=== PATIENT | female | born 1930 | race Caucasian/White ===

== ENCOUNTER 2020-04-14 15:22 | Inpatient (IN) | payer OTHER ==
[2020-04-14] MEDS: SODIUM CHLORIDE 1,000 ML IV SCH (16:25)
[2020-04-14 16:47] LABS: ADD RBC MORPHOLOGY YES; BASO % 0.7 % (0-2.0); EOS % 2.5 % (0-4.5); HEMATOCRIT 27.5 % (32.4-45.2); HEMOGLOBIN 8.8 GM/dl (10.7-15.3); LYMPH % 15.9 % (8-40); MCH 22.9 pg (25.7-33.7); MCHC 31.8 g/dl (32.0-36.0); MEAN PLT VOLUME 9.3 fl (7.5-11.1); MONO % 6.3 % (3.8-10.2); NEUT % 74.6 % (42.8-82.8); PLATELET COUNT 193 K/MM3 (134-434); RBC 3.83 M/mm3 (3.60-5.2); WHITE BLOOD COUNT 5.2 K/mm3 (4.0-10.8)
[2020-04-14 16:53] LABS: ACTIVATED PTT 28.3 SECONDS (25.2-36.5)
[2020-04-14 16:55] LABS: ALBUMIN 4.1 g/dl (3.4-5.0); BILIRUBIN,TOTAL 1.3 mg/dl (0.2-1); CALCIUM 9.3 mg/dl (8.5-10); CREATININE 0.8 mg/dl (0.55-1.3); POTASSIUM 3.5 mmol/L (3.5-5.1)
[2020-04-14 17:00] LABS: INR 1.2 (0.82-1.09); PROTHROMBIN TIME (PATIENT) 13.4 SEC (10.2-13.0)
[2020-04-14] MEDS ORDERED: ASPIRIN 81 MG CHEWABLE TABLETS PO ONE (17:00)
[2020-04-14 17:02] LABS: CHOLESTEROL 122 mg/dl (50-200); HDL CHOLESTEROL 51 mg/dl (40-60); TRIGLYCERIDES 74 mg/dl (0-150)
[2020-04-14] MEDS ORDERED: ASPIRIN 81 MG CHEWABLE TABLETS ONE (17:04)
[2020-04-14] MEDS ORDERED: CLOPIDOGREL BISULFATE 75 MG TABLET (FP) PO ONE (17:07)
--- NOTE | 2020-04-14 17:14 | CON.NEURO ---
Consult Consult Specialty:: Jb Referred by:: ER Reason for Consultation:: Slurred speech - History of Present Illness History of Present Illness: 89 years old woman with PMH CAD OA HTN Cardiac Arrhythmia, not on Ac On Asprin Anemia HTN DM was last seen normal yesterday at 10 PM while at part Someone spoke to the patient today noted with exp aphasia No headache and no CP - History Source History Provided By: Medical Record Limitations to Obtaining History: Clinical Condition - Smoking History Smoking history: Never smoked Have you smoked in the past 12 months: No Home Medications - Allergies Allergies/Adverse Reactions: Allergies Allergy/AdvReac Type Severity Reaction Status Date / Time No Known Allergies Allergy Verified 04/14/20 15:23 - Home Medications Home Medications: Ambulatory Orders Aspirin [ASA -] 81 mg PO DAILY 04/14/20 Atorvastatin Ca [Lipitor] 20 mg PO HS 04/14/20 Doxazosin Mesylate 8 mg PO HS 04/14/20 Furosemide 40 mg PO DAILY 04/14/20 Glipizide [Glipizide ER] 10 mg PO DAILY 04/14/20 Lisinopril [Prinivil -] 40 mg PO DAILY 04/14/20 Metformin HCl [Glucophage] 1,000 mg PO BID 04/14/20 Metoprolol Succinate [Toprol Xl] 50 mg PO DAILY 04/14/20 Family Medical History Family History: Unable to Obtain, Unremarkable Review of Systems - Review of Systems Constitutional: reports: No Symptoms Eyes: reports: No Symptoms Neurological: reports: Dizziness, Headache, Incoordination Physical Exam-Neuro Vital Signs: Vital Signs Temperature 99.1 F 04/14/20 15:23 Pulse Rate 74 04/14/20 15:23 Respiratory Rate 20 04/14/20 15:23 Blood Pressure 170/88 04/14/20 15:23 O2 Sat by Pulse Oximetry (%) 97 04/14/20 15:23 Constitutional: Yes: Well Nourished Neck: Yes: WNL Cardiovascular: Yes: WNL Labs: CBC, BMP 04/14/20 16:27 04/14/20 16:27 INR, PTT INR 1.20 (0.82-1.09) 04/14/20 16:27 - Neuro Exam Level Of Consciousness: Yes: Oriented to Person, Oriented to Place Eyes: Yes: PERRLA Speech: Slurred Dominant Hand: Right Cranial Nerves II-XII Intact: Yes Gag: Present DTR's: 1+ Left Bicep, 1+ Right Bicep Response to light touch: Abnormal Response to pain prick: Abnormal Response to temperature: Abnormal Motor Strength: 3/5: Left Arm, Right Arm, Left Leg, Right Leg Gait: Deferred NIH Stroke Scale - Last Known Well Date/Time & Onset Date Last Known Well: 04/13/20 Time Last Known Well: 22:00 - Initial Evaluation Level of consciousness: Alert Ask patient the month and their age: Answers both correctly Ask patient to open & close eyes; make fist and let go: Obeys both correctly Best gaze (horizontal eye movement): Normal Visual field testing: No visual field loss Facial paresis (Show teeth/raise eyebrows/close eyes tight): Normal symmetrical movement Motor Function: Left Arm: Normal Motor Function: Right Arm: Normal (extends arm 90 (or 45) degrees for 10 seconds without drift Motor Function: Left Leg: Normal (extends leg 30 degrees for 5 seconds without drift) Motor Function: Right Leg: Normal (extends leg 30 degrees for 5 seconds without drift) Limb Ataxia: No ataxia Sensory(Use pinprick test arms,legs,trunk,face/side to side): Normal Best language (Describe picture, name items, read sentences): Mild to moderate aphasia Dysarthria (read several words): Mild to moderate slurring of words Extinction and Inattention: No abnormality - Total Score NIH Stroke Scale Score: 2 Imaging - Results Cat Scan: Image Reviewed Problem List - Problems (1) Stroke due to embolism of carotid artery Code(s): I63.139 - CEREBRAL INFARCTION DUE TO EMBOLISM OF UNSP CAROTID ARTERY Assessment/Plan 1. No Tpa 2. Anemia work up 3. Add Plavix 75 mg po qd 4. Speech eval 5. C Duplex 6. Echo 7. DVT prophylaxis 8. MRI brain no Kyle Thank you Jenn Muhammad MD [phone]
--- NOTE | 2020-04-14 17:20 | PDOC ---
Documentation entered by Erica Noriega SCRIBE, acting as scribe for Chin Newton MD. Chin Newton MD: This documentation has been prepared by the Leann escobedo Brenda, SCRIBE, under my direction and personally reviewed by me in its entirety. I confirm that the documentation accurately reflects all work, treatment, procedures, and medical decision making performed by me. History of Present Illness - General Chief Complaint: CVA/TIA Stated Complaint: TIA/STROKE History Source: Patient Exam Limitations: No Limitations - History of Present Illness Initial Comments: 04/14/20 15:44 The patient is a an 89 year old male, with a significant PMH of HTN, DM and ?Afib (needs valve procedure) who presents to the emergency department with who presents to the ED for evaluation of confusion. As per the patient's grand niece, around 1:50pm today she spoke to a family member who noted that the patient was unable to properly respond and use her words while on the phone. As per niece, the patient was at a social gathering last night, where she had extensive conversations with other people and was fine. The niece also notes that the patient is normally sharp and very conversive at her baseline, but has not been today. She also reports that she has been complateting all her tasks at home normally, such as cooking but has only not been able to respond properly. The niece also notes that the patient was seen at [facility] last week and had an IV contrast CT scan, so she had not taken her metformin. The patient was a poor historian. Allergies: Seasonal, NKDA Social history: No reported hx of tobacco use, alcohol use or illicit drug use. NIH Stroke Scale - Last Known Well Date/Time & Onset Date Last Known Well: 04/13/20 Time Last Known Well: 22:00 - Initial Evaluation Level of consciousness: Alert Ask patient the month and their age: Both incorrect Ask patient to open & close eyes; make fist and let go: Obeys both correctly Best gaze (horizontal eye movement): Normal Visual field testing: No visual field loss Facial paresis (Show teeth/raise eyebrows/close eyes tight): Normal symmetrical movement Motor Function: Left Arm: Normal Motor Function: Right Arm: Normal (extends arm 90 (or 45) degrees for 10 seconds without drift Motor Function: Left Leg: Normal (extends leg 30 degrees for 5 seconds without drift) Motor Function: Right Leg: Normal (extends leg 30 degrees for 5 seconds without drift) Limb Ataxia: No ataxia Sensory(Use pinprick test arms,legs,trunk,face/side to side): Normal Best language (Describe picture, name items, read sentences): Mild to moderate aphasia Dysarthria (read several words): Mild to moderate slurring of words Extinction and Inattention: No abnormality - Total Score NIH Stroke Scale Score: 4 Past History - Medical History Allergies/Adverse Reactions: Allergies Allergy/AdvReac Type Severity Reaction Status Date / Time No Known Allergies Allergy Verified 04/14/20 15:23 Home Medications: Ambulatory Orders Aspirin [ASA -] 81 mg PO DAILY 04/14/20 Atorvastatin Ca [Lipitor] 20 mg PO HS 04/14/20 Doxazosin Mesylate 8 mg PO HS 04/14/20 Furosemide 40 mg PO DAILY 04/14/20 Glipizide [Glipizide ER] 10 mg PO DAILY 04/14/20 Lisinopril [Prinivil -] 40 mg PO DAILY 04/14/20 Metformin HCl [Glucophage] 1,000 mg PO BID 04/14/20 Metoprolol Succinate [Toprol Xl] 50 mg PO DAILY 04/14/20 Review of Systems - Review of Systems Able to Perform ROS?: Yes Comments:: 04/14/20 15:44 ROS: A complete review of 10 out of 10 review of systems is taken and is negative apart from what is previously mentioned below and in the HPI. *Physical Exam - Physical Exam 04/14/20 15:45 Vitals: Triage vital signs reviewed General Appearance: No acute distress, well nourished, well developed Head: Atraumatic Eyes: Pupils equal reactive round, extraocular movement intact Neck: Supple; No nuchal rigidity Cardiac: Regular rate and rhythm, no murmurs, no rubs, no gallops Lungs: Clear to auscultation bilateral, good air movement bilaterally Abdomen: Soft, nondistended, normal bowel sounds, nontender to palpation Extremities: Full range of motion to all extremities, no cyanosis, clubbing, or edema Skin: Warm and dry, no rashes or lesions, no rash, no petechiae Neuro: AOX1; Cranial Nerves 2-12 grossly intact, Strength intact to all extremities, Sensation intact to all extremities, gait normal Psych: Normal mood, normal affect 04/14/20 18:19 Heart Score/ECG Review - ECG Impressions Comment:: 04/14/20 18:17 EKG performed at 1557 demonstrates normal sinus rhythm no ST elevations no T wave inversions Interpreted by me. ED Treatment Course - LABORATORY CBC & Chemistry Diagram: 04/14/20 16:27 04/14/20 16:27 Medical Decision Making - Medical Decision Making 04/14/20 16:07 Patient seen at time of arrival at 322pm. MD at bedside. Code carrera activated. Last seen normal last night. Not a TPA candidate. 04/14/20 17:01 Call placed out to Neurology (Dr. Santos) 04/14/20 17:20 Case discussed with neurology recommends full dose aspirin and Plavix 75 mg will see patient will admit for further evaluation of stroke Aspirin Plavix given will admit to medicine for further management. Discharge - Discharge Information Problems reviewed: Yes Clinical Impression/Diagnosis: Cerebrovascular accident (CVA) Qualifiers: CVA mechanism: unspecified Qualified Code(s): I63.9 - Cerebral infarction, unspecified Condition: Good - Admission Yes - Follow up/Referral - Patient Discharge Instructions - Post Discharge Activity
[2020-04-14] MEDS ORDERED: CLOPIDOGREL BISULFATE 75 MG TABLET (FP) ONE (17:44)
[2020-04-14 20:44] VITALS: BMI 34.9
--- NOTE | 2020-04-14 21:33 | HP ---
CHIEF COMPLAINT: Confusion, Expressive Aphasia PCP: HISTORY OF PRESENT ILLNESS: This is a 89 y/o female with a PMHx of HTN, NIDDM, CAD, ?Afib (needs valve procedure), OA, ROBINSON. Who presents to the ED for confusion. Per ED records, the grandniece reports a family member noted the patient to be not responding and having difficulty with her words while on the telephone. The grandniece reports that the patient was seen at a family function the day before fully conversant. The niece reports that the patient is unable to complete her daily tasks such as cooking, unable to respond properly. The patient had a CT scan with IV contrast last week at [facility]- Metformin was held. The patient is a poor historian ER course was notable for: (1) Head CT- no CT evidence of acute intracranial pathology (2) Hgb8.8, Hct 27.5 (3) EKG- Afib with PVCs Recent Travel: None PAST MEDICAL HISTORY: See HPI PAST SURGICAL HISTORY: Unknown Social History: Smoking: Never (per medical records) Alcohol: None Drugs: None Lives alone Allergies No Known Allergies Allergy (Verified 04/14/20 15:23) HOME MEDICATIONS: Home Medications Medication Instructions Recorded Aspirin [ASA -] 81 mg PO DAILY 04/14/20 Atorvastatin Ca [Lipitor] 20 mg PO HS 04/14/20 Doxazosin Mesylate 8 mg PO HS 04/14/20 Furosemide 40 mg PO DAILY 04/14/20 Glipizide [Glipizide ER] 10 mg PO DAILY 04/14/20 Lisinopril [Prinivil -] 40 mg PO DAILY 04/14/20 Metformin HCl [Glucophage] 1,000 mg PO BID 04/14/20 Metoprolol Succinate [Toprol Xl] 50 mg PO DAILY 04/14/20 REVIEW OF SYSTEMS CONSTITUTIONAL: Absent: fever, chills, diaphoresis, generalized weakness, malaise, loss of appetite, weight change HEENT: Absent: rhinorrhea, nasal congestion, throat pain, throat swelling, difficulty swallowing, mouth swelling, ear pain, eye pain, visual changes CARDIOVASCULAR: Absent: chest pain, syncope, palpitations, irregular heart rate, lightheadedn ess, peripheral edema RESPIRATORY: Absent: cough, shortness of breath, dyspnea with exertion, orthopnea, wheezing, stridor, hemoptysis GASTROINTESTINAL: Absent: abdominal pain, abdominal distension, nausea, vomiting, diarrhea, constipation, melena, hematochezia GENITOURINARY: Absent: dysuria, frequency, urgency, hesitancy, hematuria, flank pain, genital pain MUSCULOSKELETAL: Absent: myalgia, arthralgia, joint swelling, back pain, neck pain SKIN: Absent: rash, itching, pallor HEMATOLOGIC/IMMUNOLOGIC: Absent: easy bleeding, easy bruising, lymphadenopathy, frequent infections ENDOCRINE: Absent: unexplained weight gain, unexplained weight loss, heat intolerance, cold intolerance NEUROLOGIC: mental status changes Absent: headache, focal weakness or paresthesias, dizziness, unsteady gait, seizure, bladder or bowel incontinence PSYCHIATRIC: Absent: anxiety, depression, suicidal or homicidal ideation, hallucinations. PHYSICAL EXAMINATION Vital Signs - 24 hr 04/14/20 04/14/20 04/14/20 15:23 17:07 17:39 Temperature 99.1 F 99.1 F 99.1 F Pulse Rate 74 Pulse Rate [ 74 74 Right] Respiratory 20 20 20 Rate Blood Pressure 170/88 Blood Pressure 176/65 H 182/86 H [Right Arm] O2 Sat by Pulse 97 98 99 Oximetry (%) 04/14/20 20:26 Temperature 98.0 F Pulse Rate 76 Pulse Rate [ Right] Respiratory 16 Rate Blood Pressure 172/57 H Blood Pressure [Right Arm] O2 Sat by Pulse 97 Oximetry (%) GENERAL: Asleep but arousable, with some confusion, in no acute distress. HEAD: Normal with no signs of trauma. EYES: Pupils equal, round and reactive to light, extraocular movements intact, sclera anicteric, conjunctiva clear. No lid lag. EARS, NOSE, THROAT: Ears normal, nares patent, oropharynx clear without exudates. Dry mucous membranes, hearing aids. NECK: Normal range of motion, supple without lymphadenopathy, JVD, or masses. LUNGS: Breath sounds equal, clear to auscultation bilaterally. No wheezes, and no crackles. No accessory muscle use. HEART: Irregular rate and rhythm, normal S1 and S2 without murmur, rub or gallop. ABDOMEN: Soft, nontender, not distended, normoactive bowel sounds, no guarding, no rebound, no masses. No hepatomegaly or splenomegaly. MUSCULOSKELETAL: Normal range of motion at all joints. No bony deformities or tenderness. No CVA tenderness. UPPER EXTREMITIES: 2+ pulses, warm, well-perfused. No cyanosis. No clubbing. No peripheral edema. LOWER EXTREMITIES: 2+ pulses, warm, well-perfused. No calf tenderness. +2 b/l pitting peripheral edema. NEUROLOGICAL: Cranial nerves II-XII intact. Normal speech. Gait not observed. PSYCHIATRIC: Cooperative. Good eye contact. Appropriate mood and affect. SKIN: Warm, dry, normal turgor, no rashes or lesions noted, normal capillary refill. Laboratory Results - last 24 hr 04/14/20 04/14/20 04/14/20 16:00 16:07 16:27 WBC RBC Hgb Hct MCV MCH MCHC RDW Plt Count MPV Absolute Neuts (auto) Neutrophils % Lymphocytes % Monocytes % Eosinophils % Basophils % PT with INR 13.4 H INR 1.20 PTT (Actin FS) 28.3 Sodium Potassium Chloride Carbon Dioxide Anion Gap BUN Creatinine Est GFR (CKD-EPI)AfAm Est GFR (CKD-EPI)NonAf POC Glucometer 158 Random Glucose Calcium Total Bilirubin AST ALT Alkaline Phosphatase Creatine Kinase Troponin I Total Protein Albumin Triglycerides Cholesterol HDL Cholesterol Urine Color Yellow Urine Appearance Clear Urine pH 6.0 Urine Protein Negative Urine Glucose (UA) Negative Urine Ketones Negative Urine Blood Negative Urine Nitrite Negative Urine Bilirubin Negative Urine Urobilinogen 0.2 Ur Leukocyte Esterase Negative Blood Type Antibody Screen 04/14/20 04/14/20 04/14/20 16:27 16:27 16:27 WBC 5.2 RBC 3.83 Hgb 8.8 L Hct 27.5 L MCV 72.0 L MCH 22.9 L MCHC 31.8 L RDW 18.0 H Plt Count 193 MPV 9.3 Absolute Neuts (auto) 4.0 Neutrophils % 74.6 Lymphocytes % 15.9 Monocytes % 6.3 Eosinophils % 2.5 Basophils % 0.7 PT with INR INR PTT (Actin FS) Sodium 135 L Potassium 3.5 Chloride 93 L Carbon Dioxide 26 Anion Gap 16 BUN 27.0 H Creatinine 0.8 Est GFR (CKD-EPI)AfAm 75.76 Est GFR (CKD-EPI)NonAf 65.36 POC Glucometer Random Glucose 154 H Calcium 9.3 Total Bilirubin 1.3 H AST 24 ALT 19 Alkaline Phosphatase 84 Creatine Kinase Troponin I Total Protein 7.0 Albumin 4.1 Triglycerides 74 Cholesterol 122 HDL Cholesterol 51 Urine Color Urine Appearance Urine pH Urine Protein Urine Glucose (UA) Urine Ketones Urine Blood Urine Nitrite Urine Bilirubin Urine Urobilinogen Ur Leukocyte Esterase Blood Type Antibody Screen 04/14/20 04/14/20 04/14/20 16:27 16:27 16:27 WBC RBC Hgb Hct MCV MCH MCHC RDW Plt Count MPV Absolute Neuts (auto) Neutrophils % Lymphocytes % Monocytes % Eosinophils % Basophils % PT with INR INR PTT (Actin FS) Sodium Potassium Chloride Carbon Dioxide Anion Gap BUN Creatinine Est GFR (CKD-EPI)AfAm Est GFR (CKD-EPI)NonAf POC Glucometer Random Glucose Calcium Total Bilirubin AST ALT Alkaline Phosphatase Creatine Kinase 73 Troponin I < 0.03 Total Protein Albumin Triglycerides Cholesterol HDL Cholesterol Urine Color Urine Appearance Urine pH Urine Protein Urine Glucose (UA) Urine Ketones Urine Blood Urine Nitrite Urine Bilirubin Urine Urobilinogen Ur Leukocyte Esterase Blood Type A POSITIVE Antibody Screen Negative ASSESSMENT/PLAN: This is a 89 y/o female with a PMHx of CAD, Afib (need valve procedure), NIDDM, OA, ROBINSON. Admitted for Acute CVA, Anemia for further evaluation of their emergent condition. Plan: See Problem List FEN D50.45%NS@42ml/hr Replete lytes prn NPO DVT ppx OOB SCDs Hold AC for now- awaiting Brain MRI Dispo: Requires Inpatient Care Family Medical History Family History: Unable to Obtain Problem List - Problem (1) Cerebrovascular accident (CVA) Assessment/Plan: NIHSS 2 Continue cardiac monitoring Head CT- neg ICH Neurology following Plavix and Asa given in ED Brain MRI Carotid Doppler r/o stenosis Echo Neurochecks Swallow eval HgbA1c Monitor CBC, CMP Continue Plavix Fall Precautions Code(s): I63.9 - CEREBRAL INFARCTION, UNSPECIFIED Qualifiers: CVA mechanism: unspecified Qualified Code(s): I63.9 - Cerebral infarction, unspecified (2) Anemia Assessment/Plan: Likely secondary to HERN[place]N Will transfuse if Hgb < 7.0 Anemia work up initiated Stool Occult Monitor CBC Monitor Vitals Code(s): D64.9 - ANEMIA, UNSPECIFIED (3) CAD (coronary artery disease) Assessment/Plan: EKG reviewed Continue home meds Code(s): I25.10 - ATHSCL HEART DISEASE OF [place] CORONARY ARTERY W/O ANG PCTRS (4) A-fib Assessment/Plan: EKG- Afib rate controlled [id number] 5 Continue home meds with parameters Monitor CMP Monitor vitals Code(s): I48.91 - UNSPECIFIED ATRIAL FIBRILLATION (5) HTN (hypertension) Assessment/Plan: suboptimal Monitor BP Continue home med Monitor renal function Code(s): I10 - ESSENTIAL (PRIMARY) HYPERTENSION (6) Diabetes mellitus Assessment/Plan: stable BGMs ISS Hold home meds for now Code(s): E11.9 - TYPE 2 DIABETES MELLITUS WITHOUT COMPLICATIONS (7) Encounter for screening laboratory testing for COVID-19 virus Assessment/Plan: [employer]ING [employer] 1, low risk COVID-19 PCR-pending Isolation Precautions Code(s): Z11.59 - ENCOUNTER FOR SCREENING FOR OTHER VIRAL DISEASES Visit type - Emergency Visit Emergency Visit: Yes ED Registration Date: 04/14/20 Care time: The patient presented to the Emergency Department on the above date and was hospitalized for further evaluation of their emergent condition. - New Patient This patient is new to me today: Yes Date on this admission: 04/14/20 - Critical Care Critical Care patient: No
[2020-04-14] MEDS ORDERED: ATORVASTATIN CA 80 MG TABLET (FP) PO SCH (22:00)
[2020-04-14 23:06] LABS: LDL CHOLESTEROL (ONLY SJRH) 56 mg/dL (5-100)
[2020-04-14 23:33] LABS: ANISOCYTOSIS 1+
[2020-04-14 23:34] LABS: PLATELET ESTIMATE ADEQUATE
[2020-04-14] MEDS: INSULIN SLIDING SCALE (NOVOLOG) 1 VIAL SQ SCH (23:54)
[2020-04-15] MEDS: INSULIN SLIDING SCALE (NOVOLOG) 1 VIAL SQ SCH ×4 (06:28→23:52)
[2020-04-15 08:01] LABS: BASO % 0.9 % (0-2.0); EOS % 3.9 % (0-4.5); HEMATOCRIT 27.6 % (32.4-45.2); HEMOGLOBIN 8.6 GM/dl (10.7-15.3); LYMPH % 20.3 % (8-40); MCH 22.8 pg (25.7-33.7); MCHC 31.3 g/dl (32.0-36.0); MEAN PLT VOLUME 9.1 fl (7.5-11.1); MONO % 7.4 % (3.8-10.2); NEUT % 67.5 % (42.8-82.8); PLATELET COUNT 198 K/MM3 (134-434); RBC 3.79 M/mm3 (3.60-5.2); RDW 18.1 % (11.6-15.6); WHITE BLOOD COUNT 4.4 K/mm3 (4.0-10.8)
[2020-04-15 08:07] LABS: ALBUMIN 3.6 g/dl (3.4-5.0); BILIRUBIN,TOTAL 1.4 mg/dl (0.2-1); CALCIUM 9.2 mg/dl (8.5-10); CREATININE 0.9 mg/dl (0.55-1.3); MAGNESIUM 1.6 mg/dL (1.8-2.4); PHOSPHOROUS 4.3 mg/dl (2.5-4.9); POTASSIUM 3.5 mmol/L (3.5-5.1); TOT PROT 6.2 g/dl (6.4-8.2)
[2020-04-15] MEDS ORDERED: MAGNESIUM SULF 50% (8.12 MEQ/2 ML-1 GM VIAL) IVPB ONE (08:58)
[2020-04-15] MEDS ORDERED: MAGNESIUM SULFATE IN WATER 2 GM/50 ML IVPB IVPB ONE (09:00)
[2020-04-15] MEDS ORDERED: ASPIRIN 81 MG CHEWABLE TABLETS PO SCH (10:00)
[2020-04-15] MEDS ORDERED: CLOPIDOGREL BISULFATE 75 MG TABLET (FP) PO SCH (10:00)
[2020-04-15] MEDS: LISINOPRIL 20 MG TABLET (FP) PO SCH (10:00)
--- NOTE | 2020-04-15 10:19 | PN ---
Physical Exam: SUBJECTIVE: Patient seen and examined oob to chair. Feels her speech is back to baseline. OBJECTIVE: Vital Signs Period Temp Pulse Resp BP Sys/Pate Pulse Ox Last 24 Hr 98.0 F-99.1 F 74-88 16-20 153-182/57-88 97-99 GENERAL: The patient is awake, alert, and fully oriented, in no acute distress. HEAD: Normal with no signs of trauma. EYES: PERRL, extraocular movements intact, sclera anicteric, conjunctiva clear. No ptosis. LUNGS: Breath sounds equal, clear to auscultation bilaterally, no wheezes, no crackles, no accessory muscle use. HEART: Irregular ABDOMEN: Soft, nontender, nondistended EXTREMITIES: 2+ pulses, warm, well-perfused, no edema. NEUROLOGICAL: Cranial nerves II through XII grossly intact. Normal speech, gait not observed. PSYCH: Normal mood, normal affect. SKIN: Warm, dry, normal turgor Laboratory Results - last 24 hr 04/14/20 04/14/20 04/14/20 16:00 16:07 16:27 WBC RBC Hgb Hct MCV MCH MCHC RDW Plt Count MPV Absolute Neuts (auto) Neutrophils % Lymphocytes % Monocytes % Eosinophils % Basophils % Hypochromia Platelet Estimate Anisocytosis Microcytosis PT with INR 13.4 H INR 1.20 PTT (Actin FS) 28.3 Sodium Potassium Chloride Carbon Dioxide Anion Gap BUN Creatinine Est GFR (CKD-EPI)AfAm Est GFR (CKD-EPI)NonAf POC Glucometer 158 Random Glucose Calcium Phosphorus Magnesium Ferritin Total Bilirubin AST ALT Alkaline Phosphatase Creatine Kinase Troponin I Total Protein Albumin Triglycerides Cholesterol Total LDL Cholesterol HDL Cholesterol Urine Color Yellow Urine Appearance Clear Urine pH 6.0 Urine Protein Negative Urine Glucose (UA) Negative Urine Ketones Negative Urine Blood Negative Urine Nitrite Negative Urine Bilirubin Negative Urine Urobilinogen 0.2 Ur Leukocyte Esterase Negative Blood Type Antibody Screen 04/14/20 04/14/20 04/14/20 16:27 16:27 16:27 WBC 5.2 RBC 3.83 Hgb 8.8 L Hct 27.5 L MCV 72.0 L MCH 22.9 L MCHC 31.8 L RDW 18.0 H Plt Count 193 MPV 9.3 Absolute Neuts (auto) 4.0 Neutrophils % 74.6 Lymphocytes % 15.9 Monocytes % 6.3 Eosinophils % 2.5 Basophils % 0.7 Hypochromia 2+ Platelet Estimate Adequate Anisocytosis 1+ Microcytosis 1+ PT with INR INR PTT (Actin FS) Sodium 135 L Potassium 3.5 Chloride 93 L Carbon Dioxide 26 Anion Gap 16 BUN 27.0 H Creatinine 0.8 Est GFR (CKD-EPI)AfAm 75.76 Est GFR (CKD-EPI)NonAf 65.36 POC Glucometer Random Glucose 154 H Calcium 9.3 Phosphorus Magnesium Ferritin Total Bilirubin 1.3 H AST 24 ALT 19 Alkaline Phosphatase 84 Creatine Kinase Troponin I Total Protein 7.0 Albumin 4.1 Triglycerides 74 Cholesterol 122 Total LDL Cholesterol 56 HDL Cholesterol 51 Urine Color Urine Appearance Urine pH Urine Protein Urine Glucose (UA) Urine Ketones Urine Blood Urine Nitrite Urine Bilirubin Urine Urobilinogen Ur Leukocyte Esterase Blood Type Antibody Screen 04/14/20 04/14/20 04/14/20 16:27 16:27 16:27 WBC RBC Hgb Hct MCV MCH MCHC RDW Plt Count MPV Absolute Neuts (auto) Neutrophils % Lymphocytes % Monocytes % Eosinophils % Basophils % Hypochromia Platelet Estimate Anisocytosis Microcytosis PT with INR INR PTT (Actin FS) Sodium Potassium Chloride Carbon Dioxide Anion Gap BUN Creatinine Est GFR (CKD-EPI)AfAm Est GFR (CKD-EPI)NonAf POC Glucometer Random Glucose Calcium Phosphorus Magnesium Ferritin Total Bilirubin AST ALT Alkaline Phosphatase Creatine Kinase 73 Troponin I < 0.03 Total Protein Albumin Triglycerides Cholesterol Total LDL Cholesterol HDL Cholesterol Urine Color Urine Appearance Urine pH Urine Protein Urine Glucose (UA) Urine Ketones Urine Blood Urine Nitrite Urine Bilirubin Urine Urobilinogen Ur Leukocyte Esterase Blood Type A POSITIVE Antibody Screen Negative 04/14/20 04/14/20 04/14/20 22:30 22:30 22:30 WBC RBC Hgb Hct MCV MCH MCHC RDW Plt Count MPV Absolute Neuts (auto) Neutrophils % Lymphocytes % Monocytes % Eosinophils % Basophils % Hypochromia Platelet Estimate Anisocytosis Microcytosis PT with INR INR PTT (Actin FS) Sodium Potassium Chloride Carbon Dioxide Anion Gap BUN Creatinine Est GFR (CKD-EPI)AfAm Est GFR (CKD-EPI)NonAf POC Glucometer Random Glucose Calcium Phosphorus Magnesium Ferritin 59.5 Total Bilirubin AST ALT Alkaline Phosphatase Creatine Kinase 56 Troponin I < 0.03 Total Protein Albumin Triglycerides Cholesterol Total LDL Cholesterol HDL Cholesterol Urine Color Urine Appearance Urine pH Urine Protein Urine Glucose (UA) Urine Ketones Urine Blood Urine Nitrite Urine Bilirubin Urine Urobilinogen Ur Leukocyte Esterase Blood Type Antibody Screen 04/14/20 04/15/20 04/15/20 22:38 04:00 06:26 WBC RBC Hgb Hct MCV MCH MCHC RDW Plt Count MPV Absolute Neuts (auto) Neutrophils % Lymphocytes % Monocytes % Eosinophils % Basophils % Hypochromia Platelet Estimate Anisocytosis Microcytosis PT with INR INR PTT (Actin FS) Sodium Potassium Chloride Carbon Dioxide Anion Gap BUN Creatinine Est GFR (CKD-EPI)AfAm Est GFR (CKD-EPI)NonAf POC Glucometer 122 88 Random Glucose Calcium Phosphorus Magnesium Ferritin Total Bilirubin AST ALT Alkaline Phosphatase Creatine Kinase 49 Troponin I 0.04 Total Protein Albumin Triglycerides Cholesterol Total LDL Cholesterol HDL Cholesterol Urine Color Urine Appearance Urine pH Urine Protein Urine Glucose (UA) Urine Ketones Urine Blood Urine Nitrite Urine Bilirubin Urine Urobilinogen Ur Leukocyte Esterase Blood Type Antibody Screen 04/15/20 04/15/20 06:47 06:47 WBC 4.4 RBC 3.79 Hgb 8.6 L Hct 27.6 L MCV 73.0 L MCH 22.8 L MCHC 31.3 L RDW 18.1 H Plt Count 198 MPV 9.1 Absolute Neuts (auto) 3.0 Neutrophils % 67.5 Lymphocytes % 20.3 Monocytes % 7.4 Eosinophils % 3.9 Basophils % 0.9 Hypochromia Platelet Estimate Anisocytosis Microcytosis PT with INR INR PTT (Actin FS) Sodium 137 Potassium 3.5 Chloride 98 Carbon Dioxide 28 Anion Gap 11 BUN 23.0 H Creatinine 0.9 Est GFR (CKD-EPI)AfAm 65.70 Est GFR (CKD-EPI)NonAf 56.69 POC Glucometer Random Glucose 84 Calcium 9.2 Phosphorus 4.3 Magnesium 1.6 L Ferritin Total Bilirubin 1.4 H AST 19 ALT 16 Alkaline Phosphatase 72 D Creatine Kinase Troponin I Total Protein 6.2 L Albumin 3.6 Triglycerides Cholesterol Total LDL Cholesterol HDL Cholesterol Urine Color Urine Appearance Urine pH Urine Protein Urine Glucose (UA) Urine Ketones Urine Blood Urine Nitrite Urine Bilirubin Urine Urobilinogen Ur Leukocyte Esterase Blood Type Antibody Screen Active Medications Generic Name Dose Route Start Last Admin Trade Name Freq PRN Reason Stop Dose Admin Aspirin 81 mg 04/15/20 10:00 Asa - PO DAILY [facility] Atorvastatin Calcium 20 mg 04/15/20 22:00 Lipitor - PO HS [facility] Clopidogrel Bisulfate 75 mg 04/15/20 10:00 Plavix - PO DAILY [facility] Doxazosin Mesylate 8 mg 04/15/20 22:00 Cardura - PO HS [facility]ENE Furosemide 40 mg 04/15/20 10:00 Lasix - PO DAILY IRENE Sodium Chloride 1,000 mls @ 42 mls/hr 04/14/20 15:30 04/14/20 16:25 Normal Saline - IV 42 mls/hr ASDIR IRENE Administration Insulin Aspart 1 vial 04/14/20 22:00 04/15/20 06:28 Novolog Vial Sliding Scale - SQ Not Given ACHS [facility] Protocol Lisinopril 40 mg 04/15/20 10:00 Prinivil PO DAILY IRENE Metoprolol Succinate 50 mg 04/15/20 10:00 Toprol Xl - PO DAILY [facility] ASSESSMENT/PLAN: 89 year old female with a PMH significant for HTN, HLD, atrial fibrillation diagnosed January 2020 not on anti-coagulation, severe aortic stenosis, anemia NOS, and Type II NIDDM. Admitted for r/o acute CVA. 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 thrombus --discussed with Dr. Cueva, risk/benefit of a/c needs to be reassessed; one dose lovenox given; will get cardiology consult --rate is well-controlled 70-80s, continue ToprolXL Severe aortic stenosis --in process of being worked up for TAVR at [place], Dr. Katy Hall ([phone]) --04/14/20 Echo done at [place]: LV hyperdynamic, EF 70-75%; afib; no RWMA; RV normal; RVSP severely elevated; severe LAE; aortic valve area 0.7cm2; moderate to severe MR; mild to moderate TR; trace PI; trace AI Coronary artery disease --04/10/20 cardiac CTA: multi-vessel calcification, most prominently proximal LAD --continue ASA, ToprolXL, atorvastatin Moderate pulmonary edema --seen on CTA Iron-deficiency anemia --Hgb 9.2 in January, 8.6 today, MCV 73 --anemia workup done at [facility] in February; on iron supplements, will continue --occult stool pending --GI consult placed; will need cardiac/neuro clearance if colonoscopy to be done prior to starting anticoagulation Hypertension --continue lisinopril, doxazosin Hyperlipidemia --continue atorvastatin Type II NIDDM --Novolog sliding scale coverage COVID negative swab 04/14 FEN Fluids: PO intake adequate Electrolytes: replete as indicated Nutrition: diabetic, low sodium; swallow eval done DVT prophylaxis: SCDs Physical therapy Dispo: dariusz Monson is also HCP: cell [phone], home [phone]; full code Visit type - Emergency Visit Emergency Visit: Yes ED Registration Date: 04/14/20 Care time: The patient presented to the Emergency Department on the above date and was hospitalized for further evaluation of their emergent condition. - New Patient This patient is new to me today: Yes Date on this admission: 04/15/20 - Critical Care Critical Care patient: No
[2020-04-15 10:24] LABS: IRON SERUM 31 ug/dL (50-175); TOTAL IRON BINDING CAPACITY 416 ug/dL (250-450)
--- NOTE | 2020-04-15 10:38 | CONSULT ---
Admitting History and Physical - Primary Care Physician PCP: froilan - Admission History of Present Illness: Per EMR- 89 y/o female with a PMHx of HTN, NIDDM, CAD, ?Afib (needs valve procedure), OA, [place]. Who presents to the ED for confusion. Per ED records, the grandniece reports a family member noted the patient to be not responding and having difficulty with her words while on the telephone. The grandniece reports that the patient was seen at a family function the day before fully conversant. The niece reports that the patient is unable to complete her daily tasks such as cooking, unable to respond properly. The patient had a CT scan with IV contrast last week at [facility]- Metformin was held. The patient is a poor historian ER course was notable for: (1) Head CT- no CT evidence of acute intracranial pathology (2) Hgb8.8, Hct 27.5 (3) EKG- Afib with PVCs Passed Dysphagia screen. Pt NPO MRI pending today History Source: Patient, Medical Record Limitations to Obtaining History: Clinical Condition - Past Medical History ...LMP Comment: 89 YEARS OLD ...: No - Advance Directives Advance Directives: Yes: Health Care Proxy - Smoking History Smoking history: Never smoked Have you smoked in the past 12 months: No History - Admission Reason For Visit: CEREBROVASCULAR ACCIDENT - Diagnostics X-ray: Report Reviewed CT Scan: Report Reviewed MRI: Pending - General Mental Status: Alert and Oriented, Awake and Alert, Able to Follow Commands Attention: Intact Ability to Follow Directions: Excellent Head/Neck Control: WFL - Hearing Hearing: Functional Hearing: Impaired, Both Hearing Aide: Yes With Patient: Yes Speech Evaluation - Communication Primary Language: BERMUDIAN - Speech Production Able to Make Needs Known: Yes: WNL Intelligibility: Yes: WNL - Speech Characteristics Voice Loudness: Normal Voice Pitch: Yes: Normal Voice Phonatory-based Quality: Yes: Normal Speech Pattern: Normal Speech Clarity: < 100% Nasal Resonance: Normal Articulation: Yes: Precise Rate of Speech: Intact - Language/Auditory Comprehension Follows: Yes: 2 Stage Simple Commands Observation: Able to respond to yes/no queries: Yes, Yes/No Confusion: No, Comprehends Conversational Speech: Yes - Language/Verbal Expression Aphasia: Yes: Anomia (occasional hesitancy in word retrieval, which may be pt's baseline.) Able to Respond to Simple Queries: Yes: WNL Able to Communicate Wants and Needs: Yes: WNL Functional Communication Status: Yes: WNL - 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 Baseline suspected) Facial Symmetry on Retraction: Symmetrical Facial Movement: Controlled Sensation: Normal Against Resistance Opening: Normal Against Resistance Closing: Normal Pucker Lips: Normal Smile: Normal Lingual Movement: Normal, Symmetric Lingual Speed of Movement: Normal Lingual Movement Strgth Against Opposition: Normal Lingual Movement Characteristics: Normal Velopharyngeal Movement: Normal Laryngeal Elevation: WFL Laryngeal Movement: Able to Palpate Rate of Intake: WFL Bolus Size: WFL Labial Seal: WFL Chewing: WFL Oral Prep Time: WFL A-P Transit: WFL Pocketing: None Timing of Swallow: WFL Coughing/Throat Clear: No (3 oz water test (-)) Recommendations - Speech Evaluation, Impression/Plan Impression: Improved language formulation as compared to admission notes. Occasional hesitancy in word retrieval, which may be pt's baseline. Excellent historian. Swallowing intact. Pending MRI- r/o cva vs tia? - Dysphagia Impressions/Plan Swallowing Skills: WFL Dysphagia Impressions: No Impairment *Silent aspiration: cannot be R/O at bedside - Recommendations Diet Consistency: Regular (soft) Medication Administration: Whole with water Liquids: Thin Liquids
[2020-04-15] MEDS: FUROSEMIDE 40 MG TABLET (FP) PO SCH (11:00)
--- NOTE | 2020-04-15 11:22 | EKG ---
Test Reason : Blood Pressure : / mmHG Vent. Rate : 075 BPM Atrial Rate : 088 BPM P-R Int : 000 ms QRS Dur : 090 ms QT Int : 416 ms P-R-T Axes : 000 -21 027 degrees QTc Int : 464 ms POOR DATA QUALITY, INTERPRETATION MAY BE ADVERSELY AFFECTED ATRIAL FIBRILLATION WITH PREMATURE VENTRICULAR OR ABERRANTLY CONDUCTED COMPLEXES ABNORMAL ECG NO PREVIOUS ECGS AVAILABLE Confirmed by MD Omar, Kane ([id number]) on 04/15/2020 11:22:34 AM Referred By: Confirmed By:Kane Nelson MD
[2020-04-15] MEDS ORDERED: ENOXAPARIN NA (PORCINE) 80 MG/0.8 ML DISP.SYRIN SQ SCH (11:45)
[2020-04-15] MEDS ORDERED: FERROUS SULFATE 27 MG PO SCH (13:30)
--- NOTE | 2020-04-15 14:22 | EKG ---
Test Reason : Blood Pressure : / mmHG Vent. Rate : 074 BPM Atrial Rate : 312 BPM P-R Int : 000 ms QRS Dur : 086 ms QT Int : 414 ms P-R-T Axes : 000 011 069 degrees QTc Int : 459 ms POOR DATA QUALITY, INTERPRETATION MAY BE ADVERSELY AFFECTED ATRIAL FIBRILLATION NONSPECIFIC T WAVE ABNORMALITY ABNORMAL ECG WHEN COMPARED WITH ECG OF 14-APR-2020 15:57, NO SIGNIFICANT CHANGE WAS FOUND Confirmed by MD Omar, Kane ([id number]) on 04/15/2020 2:21:59 PM Referred By: Confirmed By:Kane Nelson MD
[2020-04-15] MEDS: FERROUS SO4 325 MG TABLET (FP) PO SCH (16:00)
--- NOTE | 2020-04-15 16:02 | PN ---
Progress Note (short form) - Note Progress Note: Patient seen and consult dictated. Patient is an 88 yo female with recent CVA/TIA, Afib, valvular heart disease and iron deficiency anemia. Patient states she has been on a baby ASA chronically. Also states she had surgery >10 years ago for a benign colon mass (surgical removal at [facility]); ? no subsequent colonoscopy. Now with microcytic anemia, low iron levels and suspected chronic GI blood loss - in the setting of need for a/c, recent CVA and possible valve surgery (?aortic ?TAVR). From a GI standpoint, would recommend both EGD and colonoscopy in view of need for long-term a/c. However optimum timing for the endoscopic procedures per Cardiology/Neurology clearance and currently patient reluctant to agree (until after her heart valve procedure). Would use a/c with caution if indicated ; high risk for increased bleeding from ?underlying lesion/source. Will follow as needed.
--- NOTE | 2020-04-15 16:52 | PN ---
Progress Note, Physician History of Present Illness: inez noted chart reviewed patient is on the floor patient was noted today with an episode of difficulty with cardiac arrhythmias. MRI of the brain with questionable faint area of subacute stroke very deep on the left frontal area I don't think it's reason for the expressive aphasia. - Current Medication List Current Medications: Active Medications Aspirin (Asa -) 81 mg PO DAILY [facility] Last Admin: 04/15/20 11:28 Dose: 81 mg Documented by: Atorvastatin Calcium (Lipitor -) 20 mg PO HS [facility] Clopidogrel Bisulfate (Plavix -) 75 mg PO DAILY [facility] Last Admin: 04/15/20 11:27 Dose: 75 mg Documented by: Doxazosin Mesylate (Cardura -) 8 mg PO HS [facility] Ferrous Sulfate (Feosol -) 325 mg PO DAILY [facility] Furosemide (Lasix -) 40 mg PO DAILY [facility] Last Admin: 04/15/20 11:00 Dose: 40 mg Documented by: Sodium Chloride (Normal Saline -) 1,000 mls @ 42 mls/hr IV ASDIR [facility] Last Admin: 04/14/20 16:25 Dose: 42 mls/hr Documented by: Insulin Aspart (Novolog Vial Sliding Scale -) 1 vial SQ ACHS [facility]; Protocol Last Admin: 04/15/20 16:17 Dose: 6 units Documented by: Lisinopril (Prinivil) 40 mg PO DAILY [facility] Last Admin: 04/15/20 10:00 Dose: 40 mg Documented by: Metoprolol Succinate (Toprol Xl -) 50 mg PO DAILY [facility] Last Admin: 04/15/20 10:28 Dose: 50 mg Documented by: - Objective Vital Signs: Vital Signs Temperature 98.9 F 04/15/20 14:01 Pulse Rate 78 04/15/20 14:01 Respiratory Rate 20 04/15/20 14:01 Blood Pressure 147/62 04/15/20 14:01 O2 Sat by Pulse Oximetry (%) 95 04/15/20 14:01 Constitutional: Yes: Well Nourished Eyes: Yes: WNL HENT: Yes: WNL Neurological: Yes: Alert, Oriented, Babinski positive, Cran Nerves II-XII Intact ...Motor Strength: WNL Labs: CBC, BMP 04/15/20 06:47 04/15/20 06:47 INR, PTT INR 1.20 (0.82-1.09) 04/14/20 16:27 Problem List - Problems (1) 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 Start the patient on Elliquis 2.5 mg po q12 2. Fall precautions. 3. Follow-up with GI. 4. Stop the aspirin and Plavix. 5. Suggest cardiology evaluation Code(s): I63.139 - CEREBRAL INFARCTION DUE TO EMBOLISM OF UNSP CAROTID ARTERY
[2020-04-15] MEDS: DOXAZOSIN MESYLATE 4 MG TABLET PO SCH (21:12)
[2020-04-15] MEDS: POLYETHYLENE GLYCOL 3350 119 GM BTL PO SCH (21:13)
[2020-04-15] MEDS: APIXABAN 2.5 MG TABLET PO SCH (21:13)
[2020-04-15] MEDS: ATORVASTATIN CA 20 MG TABLET (FP) PO SCH (21:13)
[2020-04-15] MEDS ORDERED: DOCUSATE SODIUM 100 MG CAPSULE (FP) PO SCH (22:00)
[2020-04-16] MEDS: INSULIN SLIDING SCALE (NOVOLOG) 1 VIAL SQ SCH ×4 (06:27→21:08)
[2020-04-16] MEDS: APIXABAN 2.5 MG TABLET PO SCH (09:46)
[2020-04-16] MEDS: FERROUS SO4 325 MG TABLET (FP) PO SCH (09:46)
[2020-04-16] MEDS: FUROSEMIDE 40 MG TABLET (FP) PO SCH (09:46)
[2020-04-16] MEDS: LISINOPRIL 20 MG TABLET (FP) PO SCH (09:46)
[2020-04-16] MEDS: POLYETHYLENE GLYCOL 3350 119 GM BTL PO SCH (10:00)
--- NOTE | 2020-04-16 11:26 | PN ---
Physical Exam: SUBJECTIVE: Patient seen and examined oob to chair. Voices no complaints. Discussed plan of care in detail. Discussed having EGD and colonoscopy. Patient is agreeable. OBJECTIVE: Vital Signs Period Temp Pulse Resp BP Sys/Pate Pulse Ox Last 24 Hr 98.6 F-99.2 F 63-82 16-20 134-149/39-62 95-98 GENERAL: The patient is awake, alert, and fully oriented, in no acute distress. HEAD: Normal with no signs of trauma. LUNGS: Breath sounds equal, clear to auscultation bilaterally, no wheezes, no crackles, no accessory muscle use. HEART: Irregular, +murmur ABDOMEN: Soft, nontender, nondistended EXTREMITIES: 2+ pulses, warm, well-perfused, no edema. NEUROLOGICAL: Cranial nerves II through XII grossly intact. Normal speech, gait not observed. Laboratory Results - last 24 hr 04/14/20 04/15/20 04/15/20 17:16 11:52 16:15 POC Glucometer 178 279 COVID-19 ([facility]ICHO) Not detected 04/15/20 04/16/20 23:50 06:26 POC Glucometer 103 101 COVID-19 ([facility]ICHO) Active Medications Generic Name Dose Route Start Last Admin Trade Name Freq PRN Reason Stop Dose Admin Apixaban 5 mg 04/16/20 11:23 Eliquis - PO BID IRENE Atorvastatin Calcium 20 mg 04/15/20 22:00 04/15/20 21:13 Lipitor - PO 20 mg HS IRENE Administration Docusate Sodium 300 mg 04/15/20 22:00 04/15/20 21:12 Colace - PO 300 mg HS IRENE Administration Doxazosin Mesylate 8 mg 04/15/20 22:00 04/15/20 21:12 Cardura - PO 8 mg HS IRENE Administration Ferrous Sulfate 325 mg 04/15/20 14:30 04/16/20 09:46 Feosol - PO 325 mg DAILY [facility]ENE Administration Furosemide 40 mg 04/15/20 10:00 04/16/20 09:46 Lasix - PO 40 mg DAILY IRENE Administration Insulin Aspart 1 vial 04/14/20 22:00 04/16/20 06:27 Novolog Vial Sliding Scale - SQ Not Given ACHS [facility] Protocol Lisinopril 40 mg 04/15/20 10:00 06/24/20 09:46 Prinivil PO 40 mg DAILY [facility]ENE Administration Metoprolol Succinate 50 mg 04/15/20 10:00 04/16/20 09:46 Toprol Xl - PO 50 mg DAILY [facility] Administration Polyethylene Glycol 17 gm 04/15/20 22:00 04/16/20 10:00 Miralax (For Daily Use) - PO 17 gm BID IRENE Administration ASSESSMENT/PLAN: 89 year old female with a PMH significant for HTN, HLD, atrial fibrillation diagnosed January 2020 not on anti-coagulation, severe aortic stenosis, anemia NOS, and Type II NIDDM. Admitted for r/o acute CVA. 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 thrombus --[id number]; started on Eliquis 5mg BID; plan is for EGD and colonoscopy tomorrow morning --rate is well-controlled 70-80s, continue ToprolXL Iron-deficiency anemia --Hgb 9.2 in January, 9.1 today, MCV 73 --continue ferrous sulfate Severe aortic stenosis --in process of being worked up for TAVR at [place], Dr. Katy Hall ([phone]) --04/14/20 echo done at [place]: LV hyperdynamic, EF 70-75%; afib; no RWMA; RV normal; RVSP severely elevated; severe LAE; aortic valve area 0.7cm2; moderate to severe MR; mild to moderate TR; trace PI; trace AI --message left for Dr. Hall's team regarding recent events Coronary artery disease --04/10/20 cardiac CTA: multi-vessel calcification, most prominently proximal LAD --continue ASA, ToprolXL, atorvastatin Moderate pulmonary edema --seen on CTA Hypertension --continue lisinopril, doxazosin Hyperlipidemia --continue atorvastatin Type II NIDDM --Novolog sliding scale coverage COVID negative swab 04/14 FEN Fluids: PO intake adequate Electrolytes: replete as indicated Nutrition: clears; NPO after midnight DVT prophylaxis: SCDs; hold Eliquis tonight, resume after procedure tomorrow Physical therapy Dispo: niece Abby Monson is also HCP: cell [phone], home [phone]; full code; discussed EGD and colonoscopy with patient, with Abby Monson, niece and HCP, and with Dr. Cindy Hunter, patient's niece and physician. All agree with plan of care. Full codde. Visit type - Emergency Visit Emergency Visit: Yes ED Registration Date: 04/14/20 Care time: The patient presented to the Emergency Department on the above date and was hospitalized for further evaluation of their emergent condition. - New Patient This patient is new to me today: No - Critical Care Critical Care patient: No
[2020-04-16] MEDS ORDERED: APIXABAN 2.5 MG TABLET PO ONE (11:30)
--- NOTE | 2020-04-16 12:59 | CON.CARD ---
Consult Consult Specialty:: Cardiology Referred by:: Medicine Reason for Consultation:: afib, aortic stenosis - History of Present Illness Chief Complaint: stroke History of Present Illness: 89F h/o HTN, DM, CAD, afib, aortic stenosis p/w confusion, difficulty speaking. Sees Dr Cueva for cardiology at [facility], has planned TAVR for aortic stenosis at [place], date not set yet. Has history of afib, was not on ac due to history of anemia that has not been worked up. evaluated by neuro here, MRI showed acute stroke. Today feels at baseline, no chest pain, palps, dizziness, dyspnea. Active at home with housework, no chest pain, dyspnea, occasional edema for which she takes lasix. - Past Medical History ...LMP Comment: 89 YEARS OLD ...: No - Smoking History Smoking history: Never smoked Have you smoked in the past 12 months: No Home Medications - Allergies Allergies/Adverse Reactions: Allergies Allergy/AdvReac Type Severity Reaction Status Date / Time amlodipine AdvReac Intermediate Verified 04/15/20 12:39 - Home Medications Home Medications: Ambulatory Orders Aspirin [ASA -] 81 mg PO DAILY 04/14/20 Atorvastatin Ca [Lipitor] 20 mg PO HS 04/14/20 Doxazosin Mesylate 8 mg PO HS 04/14/20 Furosemide 40 mg PO DAILY 04/14/20 Glipizide [Glipizide ER] 10 mg PO DAILY 04/14/20 Lisinopril [Prinivil -] 40 mg PO DAILY 04/14/20 Metformin HCl [Glucophage] 1,000 mg PO BID 04/14/20 Metoprolol Succinate [Toprol Xl] 50 mg PO DAILY 04/14/20 Ferrous Sulfate [High Potency Iron] 27 mg PO DAILY 04/15/20 Metolazone 2.5 mg PO ASDIR 04/15/20 Family Medical History Family History: Unremarkable Review of Systems - Review of Systems Constitutional: reports: No Symptoms Eyes: reports: No Symptoms HENT: reports: No Symptoms Neck: reports: No Symptoms Cardiovascular: reports: No Symptoms Respiratory: reports: No Symptoms Gastrointestinal: reports: No Symptoms Genitourinary: reports: No Symptoms Musculoskeletal: reports: No Symptoms Integumentary: reports: No Symptoms Neurological: reports: No Symptoms Endocrine: reports: No Symptoms Hematology/Lymphatic: reports: No Symptoms Psychiatric: reports: No Symptoms Vital Signs: Vital Signs Temperature 98.7 F 04/16/20 09:50 Pulse Rate 76 04/16/20 09:50 Respiratory Rate 19 04/16/20 09:50 Blood Pressure 140/52 L 04/16/20 09:50 O2 Sat by Pulse Oximetry (%) 97 04/16/20 01:50 Constitutional: Yes: No Distress, Calm Eyes: Yes: Conjunctiva Clear, EOM Intact HENT: Yes: Atraumatic, Normocephalic Neck: Yes: Supple, Trachea Midline Respiratory: Yes: Regular, CTA Bilaterally Gastrointestinal: Yes: Normal Bowel Sounds, Soft Cardiovascular: Yes: Regular Rate and Rhythm JVD: No Heart Sounds: Yes: S1, S2 Extremities: No: Cold Edema: No Integumentary: No: Jaundice Neurological: Yes: Alert, Oriented Psychiatric: No: Agitated - Other Data Labs, Other Data: CBC, BMP 04/15/20 06:47 04/15/20 06:47 INR, PTT INR 1.20 (0.82-1.09) 04/14/20 16:27 Assessment/Plan EKG: afib, rate ok, no ischemic changes echo 03/2020 at [place] LV hyperdynamic, EF 70-75%; afib; no RWMA; RV normal; RVSP severely elevated; severe LAE; aortic valve area 0.7cm2; moderate to severe MR; mild to moderate TR; trace PI; trace AI tele: afib, rate ok CVA - history of afib, was not on AC - cont statin, eliquis - neuro following afib - rate controlled, cont metoprolol - [id number] warrants AC - started on eliquis 5 mg BID here (appropriate dose given age >80 yo, however Cr <1.5 and weight >60 kg) - discussed with patient - has anemia that has not been worked up. monitor H/H here, would benefit from GI workup given ongoing need for anticoagulation preop, anemia - patient has history of aortic stenosis, however she is euvolemic and asymptomatic - she is at acceptable risk for endoscopy, colonoscopy if indicated - GI following - monitor H/H on AC. may hold eliquis as needed prior to GI procedures aortic stenosis - plan for TAVR with Dr. Hall at [place] - cont lasix CAD -04/10/20 cardiac CTA: multi-vessel calcification, most prominently proximal LAD -continue ASA, ToprolXL, atorvastatin HTN - cont current meds DM - manage per primary
[2020-04-16] MEDS ORDERED: PEG 3350/NA SULF BICARB CL/KCL 4000 ML SOLN.RECON PO ONE (13:49)
[2020-04-16 14:35] LABS: ALBUMIN 3.9 g/dl (3.4-5.0); BASO % 0.6 % (0-2.0); BILIRUBIN,TOTAL 1.4 mg/dl (0.2-1); EOS % 2.4 % (0-4.5); HEMATOCRIT 28.2 % (32.4-45.2); HEMOGLOBIN 9.1 GM/dl (10.7-15.3); LYMPH % 13.9 % (8-40); MAGNESIUM 1.8 mg/dL (1.8-2.4); MCH 23.1 pg (25.7-33.7); MCHC 32.4 g/dl (32.0-36.0); MEAN CELL VOLUME 71.6 fl (80-96); MEAN PLT VOLUME 8.9 fl (7.5-11.1); MONO % 7.5 % (3.8-10.2); NEUT % 75.6 % (42.8-82.8); PLATELET COUNT 191 K/MM3 (134-434); POTASSIUM 3.8 mmol/L (3.5-5.1); RBC 3.94 M/mm3 (3.60-5.2); RDW 18.4 % (11.6-15.6); TOT PROT 6.6 g/dl (6.4-8.2); WHITE BLOOD COUNT 5.3 K/mm3 (4.0-10.8)
[2020-04-16 14:39] LABS: ADD RBC MORPHOLOGY YES
[2020-04-16 14:40] LABS: ACTIVATED PTT 30.8 SECONDS (25.2-36.5)
[2020-04-16 14:45] LABS: INR 1.51 (0.82-1.09); PROTHROMBIN TIME (PATIENT) 16.8 SEC (10.2-13.0)
--- NOTE | 2020-04-16 15:57 | DS ---
Physical Exam: SUBJECTIVE: Patient seen and examined OBJECTIVE: Vital Signs Period Temp Pulse Resp BP Sys/Pate Pulse Ox Last 24 Hr 98.1 F-99.2 F 59-82 16-19 133-149/39-62 95-99 PHYSICAL EXAM GENERAL: The patient is awake, alert, and fully oriented, in no acute distress. HEAD: Normal with no signs of trauma. EYES: PERRL, extraocular movements intact, sclera anicteric, conjunctiva clear. ENT: Ears normal, nares patent, oropharynx clear without exudates, moist mucous membranes. NECK: Trachea midline, full range of motion, supple. LUNGS: Breath sounds equal, clear to auscultation bilaterally, no wheezes, no crackles, no accessory muscle use. HEART: Regular rate and rhythm, S1, S2 without murmur, rub or gallop. ABDOMEN: Soft, nontender, nondistended, normoactive bowel sounds, no guarding, no rebound, no hepatosplenomegaly, no masses. EXTREMITIES: 2+ pulses, warm, well-perfused, no edema. NEUROLOGICAL: Cranial nerves II through XII grossly intact. Normal speech, gait not observed. PSYCH: Normal mood, normal affect. SKIN: Warm, dry, normal turgor, no rashes or lesions noted. LABS Laboratory Results - last 24 hr 04/15/20 04/15/20 04/16/20 16:15 23:50 06:26 WBC RBC Hgb Hct MCV MCH MCHC RDW Plt Count MPV Absolute Neuts (auto) Neutrophils % Lymphocytes % Monocytes % Eosinophils % Basophils % PT with INR INR PTT (Actin FS) Sodium Potassium Chloride Carbon Dioxide Anion Gap BUN Creatinine Est GFR (CKD-EPI)AfAm Est GFR (CKD-EPI)NonAf POC Glucometer 279 103 101 Random Glucose Calcium Magnesium Total Bilirubin AST ALT Alkaline Phosphatase Total Protein Albumin 04/16/20 04/16/20 04/16/20 12:51 13:57 13:57 WBC 5.3 RBC 3.94 Hgb 9.1 L Hct 28.2 L MCV 71.6 L MCH 23.1 L MCHC 32.4 RDW 18.4 H Plt Count 191 MPV 8.9 Absolute Neuts (auto) 4.1 Neutrophils % 75.6 Lymphocytes % 13.9 Monocytes % 7.5 Eosinophils % 2.4 Basophils % 0.6 PT with INR INR PTT (Actin FS) Sodium 135 L Potassium 3.8 Chloride 94 L Carbon Dioxide 28 Anion Gap 13 BUN 20.0 H Creatinine 1.0 Est GFR (CKD-EPI)AfAm 57.84 Est GFR (CKD-EPI)NonAf 49.91 POC Glucometer 308 Random Glucose 300 H Calcium 9.0 Magnesium 1.8 Total Bilirubin 1.4 H AST 20 ALT 14 Alkaline Phosphatase 88 D Total Protein 6.6 Albumin 3.9 04/16/20 13:57 WBC RBC Hgb Hct MCV MCH MCHC RDW Plt Count MPV Absolute Neuts (auto) Neutrophils % Lymphocytes % Monocytes % Eosinophils % Basophils % PT with INR 16.8 H INR 1.51 H PTT (Actin FS) 30.8 Sodium Potassium Chloride Carbon Dioxide Anion Gap BUN Creatinine Est GFR (CKD-EPI)AfAm Est GFR (CKD-EPI)NonAf POC Glucometer Random Glucose Calcium Magnesium Total Bilirubin AST ALT Alkaline Phosphatase Total Protein Albumin HOSPITAL COURSE: Date of Admission:04/14/20 Date of Discharge: 04/16/20 Discharge Summary Problems reviewed: Yes Reason For Visit: CEREBROVASCULAR ACCIDENT Current Active Problems A-fib (Acute) Anemia (Acute) CAD (coronary artery disease) (Acute) Cerebrovascular accident (CVA) (Acute) Diabetes mellitus (Acute) Encounter for screening laboratory testing for COVID-19 virus (Acute) HTN (hypertension) (Acute) Stroke due to embolism of carotid artery (Acute) Condition: Good - Instructions - Home Medications Comprehensive Discharge Medication List: Ambulatory Orders Aspirin [ASA -] 81 mg PO DAILY 04/14/20 Atorvastatin Ca [Lipitor] 20 mg PO HS 04/14/20 Doxazosin Mesylate 8 mg PO HS 04/14/20 Furosemide 40 mg PO DAILY 04/14/20 Glipizide [Glipizide ER] 10 mg PO DAILY 04/14/20 Lisinopril [Prinivil -] 40 mg PO DAILY 04/14/20 Metformin HCl [Glucophage] 1,000 mg PO BID 04/14/20 Metoprolol Succinate [Toprol Xl] 50 mg PO DAILY 04/14/20 Ferrous Sulfate [High Potency Iron] 27 mg PO DAILY 04/15/20 Metolazone 2.5 mg PO ASDIR 04/15/20
[2020-04-16] MEDS: SODIUM CHLORIDE 1,000 ML IV SCH (19:41)
[2020-04-16] MEDS ORDERED: LOCK ITEM NR ONE (20:38)
[2020-04-16] MEDS: DOXAZOSIN MESYLATE 4 MG TABLET PO SCH (21:08)
[2020-04-16] MEDS: ATORVASTATIN CA 20 MG TABLET (FP) PO SCH (21:08)
[2020-04-16 21:21] LABS: PLATELET ESTIMATE ADEQUATE
[2020-04-16] MEDS ORDERED: APIXABAN 5 MG TABLET PO SCH (22:00)
[2020-04-17] MEDS ORDERED: LACTATED RINGERS SOLUTION 1,000 ML/1,000 ML INFUS.BAG IV SCH (00:01)
[2020-04-17] MEDS: INSULIN SLIDING SCALE (NOVOLOG) 1 VIAL SQ SCH ×4 (06:46→21:38)
--- NOTE | 2020-04-17 07:38 | CONS ---
DATE OF CONSULTATION: 04/15/2020 HISTORY OF PRESENT ILLNESS: Asked to evaluate this 89-year-old female with microcytic/iron deficiency anemia. The patient has a history of cardiac disease, atrial fibrillation, type 2 diabetes mellitus and hypertension. She also has a history of recent neurologic even, ? stroke and was admitted with difficulty with her speech and certain tasks. The patient has recovered from the neurologic event and has been seen by Neurology. On her blood work she was noted to have a microcytic anemia with initial hemoglobin of 8.8, hematocrit 27.5 with an MCV of 72 which was confirmed on repeat testing. Her iron level is low at 31 with a 7% iron saturation. The patient is unaware of any actual bleeding but is aware currently of being anemic. Her BUN is 23 and creatinine 0.9. The patient reports a history of colon surgery at [facility] in [place] over 10 years ago at which time a lesion was removed from the colon surgically which she believes was benign and she did not require any additional treatment postsurgery. She does not think she had a followup colonoscopy in over 10 or 15 years. She has been on a baby aspirin chronically and at the time of admission was on the baby aspirin. In addition, the patient is currently on iron supplement and was placed on Plavix. She denies seeing any black or tarry stool or bright-red blood per rectum. Her appetite and weight have remained relatively stable and her bowel habits fairly regular, once daily. PHYSICAL EXAMINATION: General: She is a well-developed, elderly, slightly pale-appearing female. Heart: She has irregularly irregular heart rate with a systolic murmur. Lungs: Clear. Abdomen: Soft, flat and nontender. LABORATORY TESTS: As above. ASSESSMENT: An 89-year-old female recently status post neurologic event, ? stroke versus transient ischemic attack, atrial fibrillation and valvular heart disease. She is being considered for aortic valve surgery or TAVR in the near future. The patient has been on a baby aspirin chronically and now has the addition of clopidogrel. She has an iron deficiency anemia and stool hemoccult testing has been ordered. Suspect occult and chronic GI blood loss causing the iron deficiency anemia. Sources could include the upper GI tract including gastritis or ulcer disease especially as since she has been on aspirin. She also has a history of a large colon lesion which was removed and may have additional polyps or other pathology including ectasias causing bleeding as well. RECOMMENDATIONS: Would suggest from a GI standpoint both upper and lower GI endoscopy as patient will likely need long-term anticoagulation. The timing of the procedures and clearance from Cardiology and Neurology would be pending. Patient is reluctant to consider either procedure until after upcoming heart surgery although this might be a prerequisite for the surgery. Will follow as needed and will be available if patient and medical team decide that GI endoscopy is appropriate. MABEL MCKEON M.D. NANCY/[id number]
[2020-04-17 08:03] LABS: ALBUMIN 3.5 g/dl (3.4-5.0); BASO % 0.6 % (0-2.0); BILIRUBIN,TOTAL 1.4 mg/dl (0.2-1); CALCIUM 8.7 mg/dl (8.5-10); CREATININE 0.7 mg/dl (0.55-1.3); EOS % 4.1 % (0-4.5); HEMATOCRIT 26.6 % (32.4-45.2); HEMOGLOBIN 8.2 GM/dl (10.7-15.3); LYMPH % 26.6 % (8-40); MAGNESIUM 1.7 mg/dL (1.8-2.4); MCH 22.4 pg (25.7-33.7); MCHC 30.9 g/dl (32.0-36.0); MEAN CELL VOLUME 72.4 fl (80-96); MEAN PLT VOLUME 8.7 fl (7.5-11.1); MONO % 9.4 % (3.8-10.2); NEUT % 59.3 % (42.8-82.8); PLATELET COUNT 183 K/MM3 (134-434); POTASSIUM 3.3 mmol/L (3.5-5.1); RBC 3.68 M/mm3 (3.60-5.2); RDW 18.2 % (11.6-15.6); TOT PROT 5.8 g/dl (6.4-8.2); WHITE BLOOD COUNT 4.4 K/mm3 (4.0-10.8)
[2020-04-17] MEDS: FERROUS SO4 325 MG TABLET (FP) PO SCH (09:17)
[2020-04-17] MEDS: LISINOPRIL 20 MG TABLET (FP) PO SCH (09:17)
[2020-04-17] MEDS: FUROSEMIDE 40 MG TABLET (FP) PO SCH (09:18)
[2020-04-17] MEDS ORDERED: MAGNESIUM SULF 50% (8.12 MEQ/2 ML-1 GM VIAL) IVPB ONE (09:22)
--- NOTE | 2020-04-17 09:25 | PN ---
Physical Exam: SUBJECTIVE: Patient seen and examined OBJECTIVE: Vital Signs Period Temp Pulse Resp BP Sys/Pate Pulse Ox Last 24 Hr 98.1 F-98.9 F 59-82 16-19 133-150/50-69 94-100 GENERAL: The patient is awake, alert, and fully oriented, in no acute distress. HEAD: Normal with no signs of trauma. LUNGS: Breath sounds equal, clear to auscultation bilaterally, no wheezes, no crackles, no accessory muscle use. HEART: Irregular, +murmur ABDOMEN: Soft, nontender, nondistended EXTREMITIES: 2+ pulses, warm, well-perfused, no edema. NEUROLOGICAL: Cranial nerves II through XII grossly intact. Normal speech, gait not observed. Laboratory Results - last 24 hr 04/16/20 04/16/20 04/16/20 12:51 13:57 13:57 WBC 5.3 RBC 3.94 Hgb 9.1 L Hct 28.2 L MCV 71.6 L MCH 23.1 L MCHC 32.4 RDW 18.4 H Plt Count 191 MPV 8.9 Absolute Neuts (auto) 4.1 Neutrophils % 75.6 Lymphocytes % 13.9 Monocytes % 7.5 Eosinophils % 2.4 Basophils % 0.6 Platelet Estimate Adequate Platelet Comment PT with INR INR PTT (Actin FS) Sodium 135 L Potassium 3.8 Chloride 94 L Carbon Dioxide 28 Anion Gap 13 BUN 20.0 H Creatinine 1.0 Est GFR (CKD-EPI)AfAm 57.84 Est GFR (CKD-EPI)NonAf 49.91 POC Glucometer 308 Random Glucose 300 H Calcium 9.0 Magnesium 1.8 Total Bilirubin 1.4 H AST 20 ALT 14 Alkaline Phosphatase 88 D Total Protein 6.6 Albumin 3.9 Stool Occult Blood 04/16/20 04/16/20 04/16/20 13:57 18:29 18:37 WBC RBC Hgb Hct MCV MCH MCHC RDW Plt Count MPV Absolute Neuts (auto) Neutrophils % Lymphocytes % Monocytes % Eosinophils % Basophils % Platelet Estimate Platelet Comment PT with INR 16.8 H INR 1.51 H PTT (Actin FS) 30.8 Sodium Potassium Chloride Carbon Dioxide Anion Gap BUN Creatinine Est GFR (CKD-EPI)AfAm Est GFR (CKD-EPI)NonAf POC Glucometer 80 Random Glucose Calcium Magnesium Total Bilirubin AST ALT Alkaline Phosphatase Total Protein Albumin Stool Occult Blood Negative 04/16/20 04/17/20 04/17/20 20:25 06:42 06:50 WBC 4.4 RBC 3.68 Hgb 8.2 L Hct 26.6 L MCV 72.4 L MCH 22.4 L MCHC 30.9 L RDW 18.2 H Plt Count 183 MPV 8.7 Absolute Neuts (auto) 2.6 Neutrophils % 59.3 Lymphocytes % 26.6 Monocytes % 9.4 Eosinophils % 4.1 Basophils % 0.6 Platelet Estimate Platelet Comment PT with INR INR PTT (Actin FS) Sodium Potassium Chloride Carbon Dioxide Anion Gap BUN Creatinine Est GFR (CKD-EPI)AfAm Est GFR (CKD-EPI)NonAf POC Glucometer 80 98 Random Glucose Calcium Magnesium Total Bilirubin AST ALT Alkaline Phosphatase Total Protein Albumin Stool Occult Blood 04/17/20 06:50 WBC RBC Hgb Hct MCV MCH MCHC RDW Plt Count MPV Absolute Neuts (auto) Neutrophils % Lymphocytes % Monocytes % Eosinophils % Basophils % Platelet Estimate Platelet Comment PT with INR INR PTT (Actin FS) Sodium 142 Potassium 3.3 L Chloride 103 Carbon Dioxide 27 Anion Gap 12 BUN 18.0 Creatinine 0.7 Est GFR (CKD-EPI)AfAm 89.03 Est GFR (CKD-EPI)NonAf 76.82 POC Glucometer Random Glucose 106 Calcium 8.7 Magnesium 1.7 L Total Bilirubin 1.4 H AST 19 ALT 14 Alkaline Phosphatase 74 D Total Protein 5.8 L Albumin 3.5 Stool Occult Blood Active Medications Generic Name Dose Route Start Last Admin Trade Name Freq PRN Reason Stop Dose Admin Atorvastatin Calcium 20 mg 04/15/20 22:00 04/16/20 21:08 Lipitor - PO 20 mg HS IRENE Administration Doxazosin Mesylate 8 mg 04/15/20 22:00 04/16/20 21:08 Cardura - PO 8 mg HS IRENE Administration Ferrous Sulfate 325 mg 04/15/20 14:30 04/17/20 09:17 Feosol - PO 325 mg DAILY IRENE Administration Furosemide 40 mg 04/15/20 10:00 04/17/20 09:18 Lasix - PO 40 mg DAILY IRENE Administration Lactated Ringer's 1,000 ml in 1,000 mls @ 50 mls/hr 04/17/20 00:01 04/17/20 06:48 Lactated Ringers Solution IV 50 mls/hr ASDIR IRENE Administration Insulin Aspart 1 vial 04/14/20 22:00 04/17/20 06:46 Novolog Vial Sliding Scale - SQ Not Given ACHS IRENE Protocol Lisinopril 40 mg 04/15/20 10:00 04/17/20 09:17 Prinivil PO 40 mg DAILY IRENE Administration Magnesium Sulfate 2 gm 04/17/20 09:22 Magnesium Sulfate IVPB 04/17/20 09:23 ONCE ONE Metoprolol Succinate 50 mg 04/15/20 10:00 04/17/20 09:18 Toprol Xl - PO 50 mg DAILY IRENE Administration Potassium Chloride 40 meq 04/17/20 09:30 K-Dur - PO 04/17/20 15:31 Q6H IRENE ASSESSMENT/PLAN: 89 year old female with a PMH significant for HTN, HLD, atrial fibrillation diagnosed January 2020 not on anti-coagulation, severe aortic stenosis, anemia NOS, and Type II NIDDM. Admitted for r/o acute CVA. 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 thrombus --[id number]; started here on Eliquis 5mg BID; plan is for EGD and colonoscopy this afternoon --rate is well-controlled 70-80s, continue ToprolXL Iron-deficiency anemia --Hgb 9.2 in January, 9.1 today, MCV 73 --continue ferrous sulfate Severe aortic stenosis --in process of being worked up for TAVR at [place], Dr. Katy Hall ([phone]) --04/14/20 echo done at [place]: LV hyperdynamic, EF 70-75%; afib; no RWMA; RV normal; RVSP severely elevated; severe LAE; aortic valve area 0.7cm2; moderate to severe MR; mild to moderate TR; trace PI; trace AI --message left for Dr. Hall's team regarding recent events Coronary artery disease --04/10/20 cardiac CTA: multi-vessel calcification, most prominently proximal LAD --continue ASA, ToprolXL, atorvastatin Pancreatic lesion --found on imaging last week; discussed with Dr. Hall's office yesterday, will need further workup; also discussed with HCP Abby Hunter today, she will discuss with Dr. Hall's team Moderate pulmonary edema --seen on CTA Hypertension --continue lisinopril, doxazosin Hyperlipidemia --continue atorvastatin Type II NIDDM --Novolog sliding scale coverage Hypokalemia --repleted Hypomagnesemia --repleted COVID negative swab 04/14 FEN Fluids: PO intake adequate Electrolytes: replete as indicated Nutrition: clears; NPO after midnight DVT prophylaxis: SCDs; hold Eliquis tonight, resume after procedure today Physical therapy Dispo: niece Abby Monson is also HCP: cell [phone], home [phone]; full code; discussed EGD and colonoscopy with patient, with Abby Monson, dariusz and HCP, and with Dr. Katerine Hunter (W: [phone]) patient's niece and oncologist at [facility]. All agree with plan of care. Full code. Visit type - Emergency Visit Emergency Visit: Yes ED Registration Date: 04/14/20 Care time: The patient presented to the Emergency Department on the above date and was hospitalized for further evaluation of their emergent condition. - New Patient This patient is new to me today: No - Critical Care Critical Care patient: No - Discharge Referral Referred to [facility] Med P.C.: No
[2020-04-17] MEDS: POTASSIUM CHLORIDE TABS 20 MEQ TABLET.ER (FP) PO SCH ×2 (09:41→16:21)
[2020-04-17] MEDS ORDERED: MAGNESIUM SULFATE IN WATER 2 GM/50 ML IVPB IVPB ONE (09:45)
[2020-04-17] MEDS ORDERED: ETOMIDATE 20 MG/10 ML AMPUL IVPUSH ONE (14:36)
--- NOTE | 2020-04-17 15:05 | PN ---
Progress Note (short form) - Note Progress Note: Upper endoscopy and colonoscopy performed with reports in chart. Findings notable for moderate duodenitis (bulb) and gastritis Colonoscopy showed only a few sigmoid diverticuli Suspect bleeding/anemia due to aspirin-related gastritis/duodenitis and would suggest avoidance of ASA (and NSAIDS) along with use of Pantoprazole 40mg PO daily. Continue on iron supplements and monitor.' Discharge home on regular diet when stable Gastric biopsies to r/o H pylori pending
--- NOTE | 2020-04-17 19:44 | PN ---
Progress Note, Physician History of Present Illness: events note d Chart reviewed Alert awake Seen after colonscopy Note dteh GI report very well oriented No BM - Current Medication List Current Medications: Active Medications Atorvastatin Calcium (Lipitor -) 20 mg PO [facility] Last Admin: 04/16/20 21:08 Dose: 20 mg Documented by: Doxazosin Mesylate (Cardura -) 8 mg PO [facility] Last Admin: 04/16/20 21:08 Dose: 8 mg Documented by: Ferrous Sulfate (Feosol -) 325 mg PO DAILY [facility] Last Admin: 04/17/20 09:17 Dose: 325 mg Documented by: Furosemide (Lasix -) 40 mg PO DAILY [facility] Last Admin: 04/17/20 09:18 Dose: 40 mg Documented by: Lactated Ringer's (Lactated Ringers Solution) 1,000 ml in 1,000 mls @ 50 mls/hr IV ASDIR [facility] Last Admin: 04/17/20 06:48 Dose: 50 mls/hr Documented by: Insulin Aspart (Novolog Vial Sliding Scale -) 1 vial SQ [facility]; Protocol Last Admin: 04/17/20 16:21 Dose: Not Given Documented by: Lisinopril (Prinivil) 40 mg PO DAILY [facility] Last Admin: 04/17/20 09:17 Dose: 40 mg Documented by: Metoprolol Succinate (Toprol Xl -) 50 mg PO DAILY [facility] Last Admin: 04/17/20 09:18 Dose: 50 mg Documented by: - Objective Vital Signs: Vital Signs Temperature 99.3 F 04/17/20 18:00 Pulse Rate 78 04/17/20 18:00 Respiratory Rate 18 04/17/20 18:00 Blood Pressure 152/61 04/17/20 18:00 O2 Sat by Pulse Oximetry (%) 96 04/17/20 18:00 Constitutional: Yes: Well Nourished Eyes: Yes: WNL HENT: Yes: WNL Cardiovascular: Yes: WNL Respiratory: Yes: WNL Neurological: Yes: Alert, Oriented, Babinski negative ...Motor Strength: WNL Labs: CBC, BMP 04/17/20 06:50 04/17/20 06:50 INR, PTT INR 1.51 (0.82-1.09) H 04/16/20 13:57 Problem List - Problems (1) Stroke due to embolism of carotid artery Code(s): I63.139 - CEREBRAL INFARCTION DUE TO EMBOLISM OF UNSP CAROTID ARTERY Assessment/Plan Start Elliquis Fall precautions neuro follwo up in two weeks
[2020-04-17] MEDS: DOXAZOSIN MESYLATE 4 MG TABLET PO SCH (21:38)
[2020-04-17] MEDS: ATORVASTATIN CA 20 MG TABLET (FP) PO SCH (21:38)
[2020-04-18] MEDS: INSULIN SLIDING SCALE (NOVOLOG) 1 VIAL SQ SCH ×2 (06:09→11:09)
[2020-04-18 08:26] LABS: BASO % 0.2 % (0-2.0); HEMATOCRIT 27.9 % (32.4-45.2); HEMOGLOBIN 8.8 GM/dl (10.7-15.3); LYMPH % 21.1 % (8-40); MCH 23.2 pg (25.7-33.7); MCHC 31.5 g/dl (32.0-36.0); MEAN CELL VOLUME 73.5 fl (80-96); MEAN PLT VOLUME 8.8 fl (7.5-11.1); MONO % 7.4 % (3.8-10.2); NEUT % 67.3 % (42.8-82.8); PLATELET COUNT 201 K/MM3 (134-434); RDW 17.9 % (11.6-15.6); WHITE BLOOD COUNT 4.9 K/mm3 (4.0-10.8)
[2020-04-18 09:21] VITALS: BP 128/60; PULSE 82; TEMP 98.5
[2020-04-18] MEDS: FUROSEMIDE 40 MG TABLET (FP) PO SCH (09:21)
[2020-04-18] MEDS: FERROUS SO4 325 MG TABLET (FP) PO SCH (09:22)
[2020-04-18] MEDS: LISINOPRIL 20 MG TABLET (FP) PO SCH (09:22)
--- NOTE | 2020-04-18 11:27 | DS ---
Physical Exam: SUBJECTIVE: Patient seen and examined. Tolerated EGD and colonoscopy well. Seen earlier ambulating with PT. OBJECTIVE: Vital Signs Period Temp Pulse Resp BP Sys/Pate Pulse Ox Last 24 Hr 98.0 F-99.4 F 62-83 17-19 128-159/60-80 94-96 PHYSICAL EXAM GENERAL: The patient is awake, alert, and fully oriented, in no acute distress. HEAD: Normal with no signs of trauma. LUNGS: Breath sounds equal, clear to auscultation bilaterally, no wheezes, no crackles, no accessory muscle use. HEART: Irregular, +murmur ABDOMEN: Soft, nontender, nondistended EXTREMITIES: 2+ pulses, warm, well-perfused, no edema. NEUROLOGICAL: Cranial nerves II through XII grossly intact. Normal speech, gait not observed. LABS Laboratory Results - last 24 hr 04/17/20 04/17/20 04/18/20 16:17 21:34 05:27 WBC RBC Hgb Hct MCV MCH MCHC RDW Plt Count MPV Absolute Neuts (auto) Neutrophils % Lymphocytes % Monocytes % Eosinophils % Basophils % POC Glucometer 109 162 110 04/18/20 06:58 WBC 4.9 RBC 3.80 Hgb 8.8 L Hct 27.9 L MCV 73.5 L MCH 23.2 L MCHC 31.5 L RDW 17.9 H Plt Count 201 MPV 8.8 Absolute Neuts (auto) 3.3 Neutrophils % 67.3 Lymphocytes % 21.1 Monocytes % 7.4 Eosinophils % 4.0 Basophils % 0.2 POC Glucometer HOSPITAL COURSE: Date of Admission:04/14/20 Date of Discharge: 04/18/20 Pre hospital course 89 year-old female with a PMH significant for HTN, HLD, atrial fibrillation diagnosed January 2020 not on anti-coagulation, severe aortic stenosis, anemia N OS, and Type II NIDDM. Presented to the ED for confusion. A family member noted the patient to be not responding and having difficulty with her words while on the telephone. Te patient was seen at a family function the day before fully conversant. 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 Maksim Cueva, [facility]; because of anemia, decision made not to start anticoagulation at that time pending GI workup which was not done due to COVID --cardiac CTA on 04/10/20 showed persistent filling defect in the left atrial appendage, slow flow v. thrombus --[id number]; started here on Eliquis 5mg BID --rate is well-controlled 70-80s, continued ToprolXL Gastritis Moderate duodenitis --seen on EGD, per GI, suspect bleeding/anemia aspirin-related --avoid ASA, NSAIDS --started daily PPI Iron-deficiency anemia --Hgb at baseline --continued ferrous sulfate Severe aortic stenosis --in process of being worked up for TAVR at [facility], Dr. Katy Hall ([phone]) --04/14/20 echo done at [facility]: LV hyperdynamic, EF 70-75%; afib; no RWMA; RV normal; RVSP severely elevated; severe LAE; aortic valve area 0.7cm2; moderate to severe MR; mild to moderate TR; trace PI; trace AI --discussed case with Dr. Hall's team Coronary artery disease --04/10/20 cardiac CTA: multi-vessel calcification, most prominently proximal LAD --continued ToprolXL, atorvastatin Pancreatic lesion --found on imaging last week; discussed with Dr. Hall's office yesterday, will need further workup; also discussed with HCP Abby Hunter today, she will discuss with Dr. 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 It is recommended you follow up with a neurologist within 1-2 weeks of your discharge. You were seen by Dr. Muhammad during your hospital stay. If you would like to see him, his contact information is enclosed. Or you may go to a neurologist of your choosing. Following an upper endoscopy you were diagnosed with moderate duodenitis and gastritis. STOP taking daily aspirin. Avoid NSAIDS (e.g. ibuprofen, Alleve, etc.). You have been started on Eliquis for atrial fibrillation. You should follow up with your automatic bandsaw tender, Dr. Maksim Cueva, within 1-2 weeks of your discharge. Your cardiothoracic team at [facility] was advised of your hospital stay. Two prescriptions have been sent to your pharmacy. One is for Eliquis and the other is for protonix. Take these medications as directed. Referrals: Maksim Cueva MD [Non Staff, Medical] - 2 Weeks Jenn Muhammad MD [Staff Physician] - 2 Weeks Disposition: HOME - Home Medications Comprehensive Discharge Medication List: Ambulatory Orders Atorvastatin Ca [Lipitor] 20 mg PO HS 04/14/20 Doxazosin Mesylate 8 mg PO HS 04/14/20 Furosemide 40 mg PO DAILY 04/14/20 Glipizide [Glipizide ER] 10 mg PO DAILY 04/14/20 Lisinopril [Prinivil -] 40 mg PO DAILY 04/14/20 Metformin HCl [Glucophage] 1,000 mg PO BID 04/14/20 Metoprolol Succinate [Toprol Xl] 50 mg PO DAILY 04/14/20 Ferrous Sulfate [High Potency Iron] 27 mg PO DAILY 04/15/20 Metolazone 2.5 mg PO ASDIR 04/15/20 Apixaban [Eliquis -] 5 mg PO BID #60 tablet 04/18/20 Pantoprazole Sodium [Protonix] 40 mg PO DAILY #30 tablet. 04/18/20 This patient is new to me today: No Emergency Visit: Yes ED Registration Date: 06/22/20 Care time: The patient presented to the Emergency Department on the above date and was hospitalized for further evaluation of their emergent condition. Critical Care patient: No - Discharge Referral Referred to [facility] No
--- NOTE | 2020-04-22 11:45 | PATH ---
Surgical Pathology Report Patient Name: MALIK SANCHEZ Med. Rec. #: [id number] /Age/Gender: 1930 (Age: 89) / F Account: [id number] Location: [facility] MED-SURG Taken: 04/17/2020 Received: 04/17/2020 Reported: 04/22/2020 Physicians: Kristen Leahy ACNP Specimen(s) Received GASTRIC ANTRUM Clinical History Iron deficiency anemia Postoperative diagnosis: Diverticulosis Final Diagnosis GASTRIC ANTRUM, BIOPSY: MILD CHRONIC GASTRITIS. IMMUNOSTAIN IS NEGATIVE FOR H.PYLORI ORGANISMS. Electronically Signed Demetrice Cisneros M.D. Gross Description Received in formalin, labeled "gastric antrum" is a georges, irregular portion of soft tissue measuring 0.4 cm. in greatest dimension. The specimen is submitted in toto in one cassette. 04/18/2020 [facility]04/18/2020
== END 2020-04-18 11:55 | disposition home or self-care (01) | DRG 65 ==
LOC: FER 15:22 → FM/S 17:07
PROVIDERS: ADMIT Internal Medicine; ATTEND Nurse Practitioner Acute Care
PROC: 0DJD8ZZ Inspection of Lower Intestinal Tract, Via Natural or Artificial Opening Endoscopic (ICD-10-PCS; 2020-04-17)
PROC: 0DB68ZX Excision of Stomach, Via Natural or Artificial Opening Endoscopic, Diagnostic (ICD-10-PCS; principal; 2020-04-17 14:39)
DX: I63.81 Other cerebral infarction due to occlusion or stenosis of small artery (principal); D68.32 Hemorrhagic disorder due to extrinsic circulating anticoagulants; R29.704 NIHSS score 4; I48.91 Unspecified atrial fibrillation; E11.9 Type 2 diabetes mellitus without complications; I25.10 Atherosclerotic heart disease of native coronary artery without angina pectoris; I10 Essential (primary) hypertension; I35.0 Nonrheumatic aortic (valve) stenosis; D50.9 Iron deficiency anemia, unspecified; E78.5 Hyperlipidemia, unspecified; E83.42 Hypomagnesemia; K86.9 Disease of pancreas, unspecified; K29.80 Duodenitis without bleeding; K29.70 Gastritis, unspecified, without bleeding; E87.6 Hypokalemia
CPT/HCPCS: 36415; 70450-TC; 70551-TC; 80053; 80061; 81003; 82272; 82550; 82728; 82962; 83036; 83540; 83550; 83721; 83735; 84100; 84484; 85025; 85610; 85730; 86850; 86900; 86901; 88305-TC; 93005; 93880-TC; 97116-GP; 97161-GP; 99285-25; U0003